=== PATIENT | male | born 1950 | race Caucasian/White ===

== ENCOUNTER 2017-07-04 12:07 | Day surgery (SDC) | payer MEDICARE ==
[~2017-07-04] VITALS: Ht 182.9 cm; Wt 84.5 kg
[~2017-07-04 12:07] MED LIST: ALBU6.7H INH; BUDE90AE IH; CARV6.252 PO; ESOM20CA28 PO; MONT10TA23 PO; SIMV20TA4 PO; TERA2CAP4 PO; fentaNYL-PF 50 mCg/mL 2 mL Inj IVPUSH PRN
[2017-07-04] MEDS ORDERED: FLUT1AER IH (15:30)
[2017-07-04 15:31] VITALS: BP 148/105; PULSE 70; RESP 16; O2SAT 98
[2017-07-04] MEDS ORDERED: 0.9% Sodium Chloride 1,000 ML IV ONE (16:39)
[2017-07-04 17:05] VITALS: BP 152/98; PULSE 61; RESP 10; O2SAT 96
[2017-07-04 17:14] VITALS: BP 144/102; PULSE 63; RESP 14; O2SAT 97
--- NOTE | 2017-07-04 17:22 | ENDO ---
[address] [address] ENDOSCOPY PROCEDURE PATIENT: VANESSA GRAVES : 1950 MR#: [id number] ADMIT: 07/04/2017 JOB ID: [id number] DATE: 07/04/2017 PREPROCEDURE DIAGNOSIS: Gastroesophageal reflux disease. POSTPROCEDURE DIAGNOSIS: Gastroesophageal reflux disease. PROCEDURE PERFORMED: Upper endoscopy with biopsy and Eugene pH probe placement. SURGEON: Hannah Stevens MD HISTORY OF PRESENT ILLNESS: This is a 67-year-old man with a history of severe gastroesophageal reflux disease refractory to medical management. He desired consideration of anti-reflux surgery and therefore upper endoscopy was performed in addition to other workup. FINDINGS: Schatzki's ring, 2 cm hiatal hernia, large fundic gland polyps with the stomach. DESCRIPTION OF PROCEDURE: The patient was brought to the endoscopy suite and placed in the left decubitus position. A bite block was placed. The upper endoscope was advanced through the esophagus, stomach, and the third portion of the duodenum. The duodenum appeared normal. The stomach was normal, with the exception of multiple large fundic gland polyps. These appeared larger than normal, two of them were approximately 1 cm in size, and therefore they were removed with a hot snare and sent for pathology. Retroflexed examination of the gastroesophageal junction revealed a 2 cm hiatal hernia and a Hill grade 2 flap valve. A Schatzki's ring was noted at the squamocolumnar junction, which was at 36 cm. The diaphragm was at 38 cm. The endoscope was withdrawn. Careful attention was paid to the esophagus, which had normal mucosa. He had a history of a possible traction diverticulum several years ago on an upper gastrointestinal, but no diverticulum was seen. The Eugene probe was then advanced to 30 cm, 6 cm above the gastroesophageal junction. It was positioned appropriately. Repeat endoscopy revealed it to be in the appropriate position. The endoscope was withdrawn. ESTIMATED BLOOD LOSS: 2 mL. SPECIMENS: Gastric fundic gland polyps for final pathology. COMPLICATIONS: None.
[2017-07-04 17:25] VITALS: BP 154/101; PULSE 61; RESP 14; O2SAT 97
--- NOTE | 2017-07-10 15:53 | PATH ---
SURGICAL PATHOLOGY Attending Physician:Hannah Stevens MD CASE STATUS: Signed Out PATIENT NAME: VANESSA GRAVES PID: [id number] : 1950 DATE COLLECTED:07/04/2017 00:00 SPECIMEN: Stomach, Polyp, Biopsy CLINICAL HISTORY: 1). GASTRIC POLYPS X2 FINAL DIAGNOSIS: Gastric Polyps x2, Biopsy: - Fragments of fundic gland polyp with focal erosion and atypia, indefinite for dysplasia. See comment. - No evidence of intestinal metaplasia. - Pending Helicobacter pylori immunohistochemical stain. (The result will be reported in an addendum) - No evidence of high grade dysplasia and malignancy. ICD10: K21.9 NOTE: Histologic sections demonstrate fragments of fundic gland polyps with areas of surface erosion and associated atypia, indefinite for dysplasia. These polyps may be a phenotypic marker for a polyposis syndrome (attenuated FAP or Mut-1 homolog).There is no evidence of high grade dysplasia and malignancy. This is not considered a precursor lesion for malignancy. Additional deeper levels are examined. The preliminary findings were discussed with Dr. Stevens, on 07/10/2017 at 11:00 am. As part of routine supervisor quality control, this case was also reviewed by Dr. Mercado who agrees with the above interpretation. GROSS DESCRIPTION: Received in formalin, labeled with the patient' s name and "gastric polyps", are five fragments of baron, soft tissue ranging from 0.3 x 0.2 x 0.1 cm to 0.6 x 0.5 x 0.5 cm. The fragments are totally submitted in one cassette. [id number]) MICRO DESCRIPTION: See dignosis. ICD-9 CODES: CPT CODES: 1: 41349, 93018 PROCEDURE/ADDENDA: Immunohistochemistry SPI Interpretation {Not Entered} Results-Comments This addendum is issued to report the results of Helicobacter pylori immunohistochemical stain. RESULT: NEGATIVE FOR HELICOBACTER PYLORI MICROORGANISMS BY IMMUNOHISTOCHEMISTRY. The control stains show appropriate reactivity. This test was developed and its performance characteristics determined by [employer]. It has not been cleared or approved by the U. S. Food and Drug Administration. The FDA has determined that such clearance or approval is not necessary. This test is used for clinical purposes. It should not be regarded as investigational or for research. Electronically Signed Out Charlie Bañuelos MD Electronically Signed Out Charlie Bañuelos MD Located Within [facility] Pathology [facility] [address], [place] [address] Technical component performed at [facility], [address], [place], [address]
[2017-07-25] MEDS ORDERED: TERA2CAP4 PO (14:00)
[2017-07-25] MEDS ORDERED: SILD20TA14 PO (14:00)
== END 2017-07-04 23:59 | disposition home or self-care (01) ==
LOC: END 12:07
PROVIDERS: ATTEND Surgery
DX: K21.0 Gastro-esophageal reflux disease with esophagitis (principal); K22.2 Esophageal obstruction; K22.4 Dyskinesia of esophagus; K31.7 Polyp of stomach and duodenum; K44.9 Diaphragmatic hernia without obstruction or gangrene; Q39.6 Congenital diverticulum of esophagus; I10 Essential (primary) hypertension; E78.5 Hyperlipidemia, unspecified; J45.909 Unspecified asthma, uncomplicated; Z80.0 Family history of malignant neoplasm of digestive organs; Z86.010 Personal history of colon polyps
CPT/HCPCS: 43251; 88305; 91010; 91037; 99153; G0500; J2250; J3010; J7030

== ENCOUNTER → 2017-07-06 | Day surgery (SDC) | payer MEDICARE ==
[~2017-07-06] MED LIST changes: +FLUT1AER IH; +OXYC5SOL11 PO; +SILD20TA14 PO; -fentaNYL-PF 50 mCg/mL 2 mL Inj IVPUSH PRN
== END | disposition home or self-care (01) ==
LOC: END 07-04 00:19
PROVIDERS: ATTEND Surgery
DX: K21.0 Gastro-esophageal reflux disease with esophagitis (principal); K22.4 Dyskinesia of esophagus

== ENCOUNTER 2017-08-02 05:33 | Day surgery (SDC) | payer MEDICARE ==
--- NOTE | 2017-08-01 16:49 | PCM.HPANE ---
Patient Data Surgeon Admitting Provider: Attending Provider:Hannah Stevens MD Primary Care Physician:Eduardo Hicks MD Other Provider:Mele Rogers Anesthesia Reason for Visit Gerd, Umbilical Hernia Ht/WT & BMI Height (Feet): 6 Height (Inches): 0 Weight (Kilograms): 86.63 Body Mass Index 25.00 Allergies Coded Allergies: lisinopril (Verified Adverse Reaction, Unknown, 07/03/17) Past Anesthesia History Anesthesia History: Denies:: Abnormal Airway, Anesthesia Reactions, Difficult Intubation, Fam Anesthesia Reaction, Fam Malignant Hypertherm, Malignant Hyperthermia Diabetes History Hx Diabetes?: No MRSA MRSA: No Medications Hypertension Medication: Yes Home Meds Incl Beta Sincere: No Reported Medications Sildenafil Citrate (Sildenafil)20 Mg Tablet1-5 Tab PO Q3D PRN erectile dysfunction 07/25/17 Terazosin 2 Mg Capsule4 Mg PO HS Ref 0 07/25/17 Fluticasone/Vilanterol (Breo Ellipta 100-25 Mcg INH)1 Each Aer.pow.ba1 Each IH DAILY 07/04/17 Terazosin 2 Mg Capsule2 Mg PO QAM Ref 0 07/03/17 Simvastatin 20 Mg [id number] Mg PO HS Ref 0 07/03/17 Esomeprazole Magnesium (Nexium)20 Mg Capsule.dr20 Mg PO DAILY Ref 0 07/03/17 Albuterol Sulfate (Proventil HFA Inhaler)6.7 Gm Hfa.aer.ad1 Puff INH Q4 PRN For Dyspepsia or Heartburn #1 INHALER Ref 0 02/27/14 Montelukast 10 Mg [id number] Mg PO HS 30 Days Ref 0 02/27/14 History History of ENT Problems?: Yes HEENT History: Positive for:: Dysphagia (current admission problem) Denies:: Abnormal Airway Cataracts Difficult Intubation Glaucoma Hearing Problem Sinus Problem TMJ Denture Type: None Teeth Condition: Within Normal Limits Hx of Heart Problems?: Yes Cardiovascular History: Positive for:: Hypertension Denies:: AICD Abdominal Aortic Aneurism Atrial Fibrillation Cardiac Surgery Chest Pain Congestive Heart Failure Edema Heart Murmur Irregular Heartbeat Pacemaker Thrombophlebitis Valvular Heart Disease Other History/Comments CHEM STRESS DONE IN aZ-RECORDS NOT ON FILE,REPORTED NL BY PT Hx of Respiratory Problem?: Yes Respiratory History: Positive for:: Asthma Use of Inhalers / NEBS Denies:: COPD Chest Surgery Cough Dyspnea Emphysema Hemoptysis Oxygen Administration Pneumonia Tuberculosis Use of C-PAP Machine Other Resp 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 (pt had punch bx left calf at dermatology last week) Denies:: Pressure Ulcers Hx Musculoskeletal Problems?: No Musculoskeletal History: Denies:: Back Injury Fibromyalgia Joint Replacement Musculoskeletal Trauma (remote hx of knee arthroscopy) Osteoarthritis Rheumatoid Arthritis Systemic Lupus Hx of Psycho/Social Problems?: No Psycho Social History: Denies:: Anxiety Bipolar Disorder Hx Depression Hx Surgeries?: Yes (L KNEE, T&A) Hx Any Other Health Problems?: Yes Other History: Denies:: Cancer Hospitalization Thyroid Disease History Blood Transfusions: Positive for:: Accept Blood Products? Denies:: Blood Transfusions Hx Diabetes: No Hx Alcohol Use: Yes (3-4 / WEEK)Hx Substance Use: No Smoking Status: Never Smoker Have You Smoked inLast 12 mo: No Stop/Bang Treated for Sleep Apnea?: No Do You Have a CPAP Machine?: No S-Snoring: Do You Snore Loudly: No T-Tired: feel tired, fatigued: No O-Obsered: Observed not breath: No P-Blood Pressure: treated: Yes B- Body Mass Index > 35 kg/m2: No A- Age over 50: Yes N- Neck Large Circumference: No G- Gender Male: Yes PRICNESS Total Score: 3 PRINCESS Risk Assessment: Low Risk, <3 Yes Risk Assessment Category Category 1A: Patient has history of documented sleep apnea, and HAS NOT received any narcotic, sedative or anesthesia administration during this stay. Category 1B: Patient has history of documented sleep apnea, and HAS received any narcotic , sedative or anesthesia administration during this stay Category 2: Patient has SUSPECTED Obstructive Sleep Apnea, and HAS received any narcotic , sedative or anesthesia administration during this stay. Category 3: Patient has SUSPECTED Obstructive Sleep Apnea and HAS NOT received narcotic, sedative or anesthesia administration during this stay. Category 4: Outpatient in Procedural Areas with known sleep apnea or who screen positive for High Risk via the STOP/BANG questionnaire. Exam Exam General Appearance: Alert, Oriented X3, Cooperative HEENT/AIRWAY: MP 2 Lungs: Clear to Auscultation Heart: Exam Unremarkable Plan Impression Patient chart reviewed, patient interviewed and anesthestic plan with risks, benefits, and alternatives discussed, and informed consent obtained. ASA Physical Status: ASA2 Mod Systemic Disease Anesthetic Plan: GA, Epidural (if open procedure) Bene/Risks/Altern/Consents: Yes HP Complete Prior to Induction: Yes Teresa Alejandro MD Aug 01, 2017 16:49
[~2017-08-02] VITALS: Ht 167.6 cm; Wt 85.4 kg
[2017-08-02] VITALS (10 sets, daily range): BP systolic 109–155; BP diastolic 50–97; PULSE 55–89; RESP 15–19; O2SAT 95–100
[~2017-08-02 05:33] MED LIST changes: -BUDE90AE IH; -CARV6.252 PO; +Dexamethasone 4 mg/mL Inj IVPUSH PRN; +EPHEDrine Sulfate 50 mg/mL Inj IVPUSH PRN; +HYDROmorphone 1 mg/mL Inj IVPUSH PRN; +Lactated Ringer's 1,000 ML IV SCH; +Lactated Ringer's 500 ML IV PRN; +MetoCLOpramide 5 mg/mL 2 mL Inj IVPUSH PRN; -OXYC5SOL11 PO; +Ondansetron 2 mg/mL 2 mL Inj IVPUSH PRN; +Phenylephrine 10,000 mCg/mL Inj IVPUSH PRN; +fentaNYL-PF 50 mCg/mL 2 mL Inj IVPUSH PRN
[2017-08-02] MEDS ORDERED: EPHEDrine/NS 5 mg/mL 5 mL Syringe ONE (05:34)
[2017-08-02] MEDS ORDERED: Rocuronium 10 mg/mL 5 mL Inj ONE (05:34)
[2017-08-02] MEDS ORDERED: Neostigmine 1 mg/mL 10 mL Inj ONE (05:34)
[2017-08-02] MEDS ORDERED: fentaNYL-PF 50 mCg/mL 2 mL Inj ONE (05:34)
[2017-08-02] MEDS ORDERED: Phenylephrine/NS 100 mCg/mL 10 mL Syringe IVPUSH ONE (05:34)
[2017-08-02] MEDS ORDERED: Glycopyrrolate 0.2 MG/ML 1mL Inj ONE (05:34)
[2017-08-02] MEDS ORDERED: Propofol 10,000 mCg/mL 20 mL Inj ONE (05:34)
[2017-08-02] MEDS: Lactated Ringer's 1,000 ML IV SCH ×3 (05:44→14:16)
[2017-08-02] MEDS ORDERED: CeFAZolin Inj 2 GM in IV Premix 1 EACH IV ONE (06:00)
[2017-08-02] MEDS ORDERED: Lactated Ringer's 500 ML IV PRN (07:23)
[2017-08-02] MEDS ORDERED: Lactated Ringer's 1,000 ML IV SCH (07:23)
[2017-08-02] MEDS ORDERED: Ondansetron 2 mg/mL 2 mL Inj IVPUSH PRN ×2 (07:25→11:55)
[2017-08-02] MEDS ORDERED: Dexamethasone 4 mg/mL Inj IVPUSH PRN (07:25)
[2017-08-02] MEDS ORDERED: EPHEDrine Sulfate 50 mg/mL Inj IVPUSH PRN (07:25)
[2017-08-02] MEDS ORDERED: HYDROmorphone 1 mg/mL Inj IVPUSH PRN (07:25)
[2017-08-02] MEDS ORDERED: fentaNYL-PF 50 mCg/mL 2 mL Inj IVPUSH PRN (07:25)
[2017-08-02] MEDS ORDERED: Phenylephrine 10,000 mCg/mL Inj IVPUSH PRN (07:25)
[2017-08-02] MEDS ORDERED: MetoCLOpramide 5 mg/mL 2 mL Inj IVPUSH PRN ×2 (07:25→11:55)
[2017-08-02 08:25] LABS: Mean Corpuscular Hemoglobin 29.9 pg (27.0-35.0); Mean Corpuscular Volume 88.4 fL (81-100)
[2017-08-02] MEDS ORDERED: Bupivacaine-MPF 0.5% 30 mL Inj INFILTRATE ONE (08:42)
[2017-08-02 08:50] LABS: BASOPHILS % (AUTO) 0.5 % (0-3); EOSINOPHILS % (AUTO) 2.1 % (0-5); MONOCYTES % (AUTO) 9.1 % (4-12); NEUTROPHILS % (AUTO) 74.1 % (40-74)
[2017-08-02 09:10] LABS: APPEARANCE,URINE HAZY (CLEAR,HAZY); COLOR,URINE YELLOW (YELLOW); OCCULT BLOOD,URINE LARGE (NEGATIVE); UROBILINOGEN,URINE NORMAL (NORMAL)
[2017-08-02] MEDS ORDERED: Lactated Ringer's 1,000 ML IV ONE ×3 (10:13→11:27)
--- NOTE | 2017-08-02 11:51 | PCM.SURGOP ---
Surgical Operative Report Date of Service: Aug 02, 2017 Pre Operative Diagnosis 1. Hiatal hernia 2. Pathologic gastroesophageal reflux 3. Umbilical hernia Post Operative Diagnosis 1. Hiatal hernia 2. Pathologic gastroesophageal reflux 3. Umbilical hernia Procedure: 1. Laparoscopic hiatal hernia repair with Toupet fundoplication 2. Laparoscopic primary umbilical hernia repair Surgeon and Critical Care Clinical Nurse Specialist: Surgeon: Hannah Stevens MD Assistants: Narendra Schmitz PA-C; Mary Ellen Valle MS 3 Indication for Procedure This is a 67-year-old man who presented to my office with symptoms of acid brash , water brash, heartburn, hoarseness voice, constant need to clear his throat, and regurgitation, despite PPI use. He had also previously undergone workup by an bleacher [employer]wood [employer], and had been told his symptoms are due to reflux.. He underwent full workup and was found to have a small sliding hiatal hernia on upper GI and endoscopy, DeMeester score of 47 on pH testing, normal peristalsis on esophageal manometry, and a Schatzki's ring and fundic gland polyps within the stomach. He also had an umbilical hernia. He desired antireflux surgery, and at the same time, umbilical hernia repair. Findings: 1. Small sliding hiatal hernia with mild inflammation around the GE junction. 2. Small accessory hepatic arterial branch in the right janis, divided to complete the operation. 3. 1.5 cm defect umbilical hernia, closed primarily. Procedure Details The patient was brought to the operating room and placed in supine position. General endotracheal anesthesia was smoothly induced. A warming blanket and SCDs were placed. The patient was repositioned into low lithotomy with the left arm tucked. Antibiotics were infused. The operative field was prepped and draped in sterile fashion. A pause was performed to confirm the correct patient, procedure, and site. The abdomen was accessed using a Veress needle in the left upper quadrant after controlling the fascia and was insufflated. An 11 mm Optiview port was inserted and intraperitoneal insufflation began. A 5 mm port was then placed in the mid abdomen just to the left of midline. The 5 mm port was placed in the mid abdomen laterally on the left. A 5 mm flexible liver retractor was placed through a 5 mm port in the right lateral abdomen. A final 5mm trocar was placed in the right upper quadrant. A small hiatal hernia was seen. The stomach was identified and the phrenogastric ligament was taken down sharply. The short gastrics were then taken down using LigaSure device. Dissection proceeded at the hiatus starting on the left. The mediastinum was entered on the left. Both vagi were identified and preserved. The gastrohepatic ligament was then divided up to the right janis and the right sided dissection was completed with care taken to preserve the entire janis. Once the esophagus was dissected circumferentially, the hiatal hernia was reduced and a [place]ington drain was then placed around the esophagus at the gastroesophageal junction for retraction to facilitate a more proximal esophageal dissection. This proceeded proximally until there was 5 cm of intra- abdominal esophagus. 3 interrupted 2-0 silk stitches were placed in the posterior crura to reapproximate them without tension. Attention was turned to the to Toupet fundoplication. A Toupet was chosen due to data demonstrating that it is equivalent for postoperative reflux but improves postoperative dysphagia and gas bloat, and the risk of bougie placement is avoided. A marking stitch was placed on the posterior fundus, 3 cm distal to the gastroesophageal junction and 2 cm posterior to the greater curvature. This was brought around posteriorly to align the geometry of the fundoplication. The first stitch was placed in the fundus just proximal to the marking stitch, to the esophagus at and 11 o'clock position, and to the right janis at the 11 o'clock position. The second stitch was placed from the posterior aspect of the right fundoplication to the bilateral crura posteriorly. The [place] drain was removed. Two additional stitches were then placed from the right side of the fundoplication to an 11 o'clock position on the esophagus. Care was taken to avoid inclusion of the anterior vagus in the stitches. The marking stitch was removed. Attention was then turned to the left side of the wrap. An appropriate position on the fundus was chosen to create symmetrical geometry of the fundoplication. The first stitch on the left was placed from the wrap to the esophagus to the janis, again with care taken to avoid inclusion of the anterior vagus in the stitch. Two additional sutures were then placed from the wrap to the esophagus, each 1 cm distal to the previous one. A final coronal stitch was placed from the left posterior fundoplication to the posterior aspect of the left janis. Attention was turned to the umbilical hernia repair. There is some incarcerated fat within it which was reduced. Hemostasis was carefully confirmed. The defect appeared 1.5 cm in size. A primary repair was chosen. A small incision was made at the center of the location of the defect with an 11 blade scalpel. A Braxton-Melba device was used to place 3 interrupted 2-0 PDS stitches above and below the defect. Once all the stitches are placed, they were each tied to close the defect. Once the procedure was complete the ports were removed under direct vision and the abdomen was desufflated. 0.5% Marcaine with epinephrine was infused at all port sites. Skin was closed with 4-0 Monocryl. Sterile dressings were placed. All sponge, instrument, and needle counts were correct at the end of the procedure. The patient was awakened from general anesthesia and taken to the postoperative care unit in good condition. Complications There were no periprocedural complications identified. Surgical Specimen Removed: No Specimen sent to Pathology: No Anesthetic Plan: GA, Epidural (if open procedure) Grafts, Implants: None Output, Estimated Blood Loss: 5 (ml) Blood Administration during aaron: No Hannah Stevens MD Aug 02, 2017 11:51
[2017-08-02] MEDS ORDERED: ProchlorPERazine 5 mg/mL 2 mL Inj IVPUSH PRN (11:55)
[2017-08-02 12:28] LABS: Mean Corpuscular Hemoglobin 29.9 pg (27.0-35.0); Mean Corpuscular Volume 90.4 fL (81-100)
--- NOTE | 2017-08-02 12:48 | PCM.ANEP1 ---
Post Anesthesia PACU Phase 1 Assessment Vital Signs Vital Signs Date Time Temp Pulse Resp B/P Pulse Ox O2 Delivery O2 Flow Rate FiO2 08/02/17 12:01 58 16 120/61 100 Simple Mask 10 08/02/17 11:55 57 17 109/50 100 Simple Mask 10 08/02/17 11:50 55 15 120/66 100 Simple Mask 10 08/02/17 11:45 36.6 58 15 126/95 100 Simple Mask 10 08/02/17 05:58 35.9 69 16 138/97 96 Room Air Anesthetic Administered: GA Level of Alertness: Awake, talking MESSER's with Equal Strength: Yes Pain: No Nausea or Vomiting: No CV Function & Hydration Stable: Yes Airway Device: Oxygen Delivery: Room Air Lungs: Clear to Auscultation PACU Phase 2 Assessment Complications: No Follow up Care: No Patient Instructions Provided: Yes Teresa Alejandro MD Aug 02, 2017 12:48
[2017-08-02] MEDS ORDERED: Albuterol 2.5 mg/3 mL Inhalation Solution NEB PRN (13:14)
[2017-08-02] MEDS: Acetaminophen 32.5 mg/mL 20 mL Liquid PO SCH ×2 (13:51→18:09)
[2017-08-02] MEDS: Heparin 5,000 Unit/mL Inj SUBQ SCH ×2 (13:51→21:06)
[2017-08-02] MEDS: Dextrose 5% Lactated Ringer's 1,000 ML IV SCH (13:59)
--- NOTE | 2017-08-02 14:19 | NUR ---
Admit Patient arrived to room 1003 at 1300 via stretcher from PACU. Patient transferred to bed via slide board. Patient denies pain or nausea. Lap sites C/D/I. Patient oriented to room and call light. Pt's at bedside. Addendum: 08/02/17 at 1421 by KATHLEEN GUEVARA RN Correction - patient arrived at 1240
[2017-08-02] MEDS: oxyCODONE 1 mg/mL 5 mL Liquid PO PRN ×2 (16:16→21:07)
--- NOTE | 2017-08-02 17:48 | NUR ---
Steri-strip Steri-strip above umbilicus got soaked with small-moderate amount sanguinous blood and came loose. Area cleaned up and new steri-strip applied. Small amount of gauze placed below area in umbilicus with paper tape to soak up any additional blood.
[2017-08-02] MEDS: Fluticasone-Salmererol 250-50 Inhaler INHALATION SCH (20:30)
[2017-08-03] MEDS: Acetaminophen 32.5 mg/mL 20 mL Liquid PO SCH ×3 (00:37→13:44)
[2017-08-03] MEDS: oxyCODONE 1 mg/mL 5 mL Liquid PO PRN ×5 (00:38→18:42)
[2017-08-03] MEDS: Dextrose 5% Lactated Ringer's 1,000 ML IV SCH (00:38)
[2017-08-03 01:11] VITALS: BP 109/67; PULSE 73; O2SAT 95
--- NOTE | 2017-08-03 03:31 | NUR ---
Lap Site Dressing to lap site at umbilicus remained CDI this shift. Pt reports pain 5/10 and rec'd PRN oxycodone and routine tylenol per orders. Encouraged Pt to cough and deep breathe while supporting abdomen with pillow. Pt understood and completed. at bedside, call light in reach. Care continues
[2017-08-03 05:24] VITALS: BP 126/82; PULSE 67; RESP 18; O2SAT 96
[2017-08-03] MEDS: Heparin 5,000 Unit/mL Inj SUBQ SCH ×2 (05:29→13:23)
[2017-08-03 05:40] LABS: Mean Corpuscular Volume 90.9 fL (81-100)
--- NOTE | 2017-08-03 07:48 | PCM.PNSURG ---
Subjective Visit Information: Reason for Visit Gerd, Umbilical Hernia Surgery/Surgery Date Post-Op Day # Date of Admission: Hospital Day # Subjective: Stable overnight. No N/V. Tolerated CLD. Labs stable. Vitals normal. Objective Vital Sign- Last 8 Hours Date Time Temp Pulse Resp B/P Pulse Ox O2 Delivery O2 Flow Rate FiO2 08/03/17 05:24 36.8 67 18 126/82 96 Room Air 08/03/17 01:11 36.8 73 109/67 95 Room Air Intake and Output- Last 8 Hour 08/03/17 Cumulative From/Thru 07:00 07/25/17 12:44 - 08/03/17 06:26 Intake Total 1294 ml 4624 ml Output Total 350 ml 1355 ml Balance 944 ml 3269 ml Intake Oral 300 ml 1100 ml IV Total 994 ml 3524 ml Output Urine Total 350 ml 1350 ml Estimated Blood Loss 5 ml # Bowel Movements 0 0 General: Alert, Oriented X3, Cooperative, No Acute Distress Abdomen: Soft, Appropriately tender Result Diagram: 08/03/17 0445 08/03/17 0445 Assessment & Plan Impression POD1 lap hiatal hernia repair, umbilical hernia repair, doing well. Problems: Plan FLD Engraver [employer] visit Alexandra is out Ambulation Possible discharge late this am/early afternoon. Hannah Stevens MD Aug 03, 2017 07:48
[2017-08-03] MEDS ORDERED: OXYC5SOL11 PO (07:49)
--- NOTE | 2017-08-03 07:50 | PCM.DISURG ---
Surgical Discharge Instruction Date of Service Aug 03, 2017 Dates of Hospitalization Date of Hospital Admission Providers Admitting Physician: Primary Care Physician: Eduardo Hicks MD Attending Physician: Hannah Stevens MD Discharge Diagnosis Post Operative diagnosis 1. Hiatal hernia 2. Pathologic gastroesophageal reflux 3. Umbilical hernia Diet Discharge Diet: Other (Full liquid diet) Activity Discharge Activity-General: No lifting >10 pounds for 4-6 weeks Dressing and Incisional Care Dressing Care: Remove outer dressing after 24 hrs Hygiene: May shower Follow Up Plan Follow Up Plan Follow up with Dr. Stevens in 2 weeks. Call your provider for: Fever, Chills, Shortness of breath, Increasing abdominal pain, Nausea, Vomiting, Discharge @ incision, pus discharge Hannah Stevens MD Aug 03, 2017 07:50
[2017-08-03] MEDS: Fluticasone-Salmererol 250-50 Inhaler INHALATION SCH (08:30)
--- NOTE | 2017-08-03 08:47 | PCM.DC.SUR ---
Discharge Summary Date of Service: Date of Hospital Admission: 08/02/2017 Date of Operation(s): 08/02/2017 Date of Discharge: 08/03/2017 Diagnosis at Time of Discharge Primary diagnoses: 1. Hiatal hernia 2. Pathologic gastroesophageal reflux 3. Umbilical hernia Other chronic conditions: 1. Piriformis syndrome 2. Low HDL 3. Hypertension 4. GERD 5. ED 6. Asthma 7. Angioedema on lisinopril Problems: Operation 1. Laparoscopic hiatal hernia repair with Toupet fundoplication 2. Laparoscopic primary umbilical hernia repair Brief History and Physical: This is a 67-year-old man who presented with symptoms of acid brash, water brash , heartburn, hoarseness voice, constant need to clear his throat, and regurgitation, despite PPI use. He had also previously undergone workup by an cytotechnologist/histotechnologist, and had been told his symptoms are due to reflux.. He underwent full workup and was found to have a small sliding hiatal hernia on upper GI and endoscopy, DeMeester score of 47 on pH testing, normal peristalsis on esophageal manometry, and a Schatzki's ring and fundic gland polyps within the stomach. He also had an umbilical hernia. Consultants: None Hospital Course: The patient was admitted and underwent the above-mentioned operations without complication. He was stable for discharge the following morning. Pathology: None Disposition: The patient was discharged to home on his first postsurgical day. Follow-up Plan: He will follow-up in the office with Dr. Stevens in 2 weeks. Albuterol Sulfate (Proventil HFA Inhaler) 6.7 Gm Hfa.aer.ad 1 PUFF INH Q4 PRN PRN For Dyspepsia or Heartburn (Reported) Fluticasone/Vilanterol (Breo Ellipta 100-25 Mcg INH) 1 Each Aer.pow.ba 1 EACH IH DAILY (Reported) Montelukast (Montelukast) 10 Mg Tablet 10 MG PO HS (Reported) Sildenafil Citrate (Sildenafil) 20 Mg Tablet 1-5 TAB PO Q3D PRN PRN erectile dysfunction (Reported) Simvastatin (Simvastatin) 20 Mg Tablet 20 MG PO HS (Reported) Terazosin (Terazosin) 2 Mg Capsule 2 MG PO QAM (Reported) Terazosin (Terazosin) 2 Mg Capsule 4 MG PO HS (Reported) oxyCODONE (oxyCODONE) 5 Mg/5 Ml Solution 5-10 MG PO Q4H PRN PRN For Severe Pain copies to: Eduardo Hicks MD, Fred H PA-C Aug 03, 2017 08:47
--- NOTE | 2017-08-03 08:53 | NUR ---
DIET ED COMPLETED. Pureed/liquid diet ed completed. Please see RD: Diet Teaching Record under Care Activity for further information regarding diet ed
[2017-08-03 15:41] VITALS: BP 132/85; PULSE 65; RESP 18; O2SAT 95
--- NOTE | 2017-08-03 19:21 | NUR ---
Discharge/Delay Pt discharged to home at 1900; A&Ox3, MESSER, VSS, IV dc'd intact, Lap site x6 CDI with steris/bandaids and gauze/tape to umbilicus, Call to Dr. Stevens re: blisters and redness to general lower back - stating itchy - was recommended hydrocortisone topical cream prior to dc, Hard copy script provided to for filling prior to dc, CareNotes and instructions provided on dc dx, new medications and s/sx to seek medical attention for. Pt medicated prior to dc. Delay in discharge d/t pt having difficulty voiding post garcia removal. Pt understood the need to void by 1000 this AM, was only able to go a couple of cc's, stated burning with initial urination post removal and some blood tinge noted to urine. Enc PO intake and pt continued to attempt to void with only ~25cc at a time. Pt without bladder discomfort. Bladder scan at 1200 was 363cc. By afternoon pt continued to have some retention but remained comfortable. Ariella urine noted. Pt attempting to relax muscles and found that sitting down to urinate was more effective and easier for urine flow. Pt stayed until after dinner to ensure ability to urinate without issue upon return home. Pt and comfortable with going home. ~175cc at a time. Instructed on s/sx to seek medical attention for d/t retention. No questions concerns left unanswered at ma. All personal belongings in hand at ma. Pt wheeled off unit to vehicle.
== END 2017-08-03 19:05 | disposition home or self-care (01) ==
LOC: SAS 05:33 → OSC 13:07 → SAS 08-03 19:05
PROVIDERS: ATTEND Surgery
DX: K44.9 Diaphragmatic hernia without obstruction or gangrene (principal); K42.0 Umbilical hernia with obstruction, without gangrene; K21.0 Gastro-esophageal reflux disease with esophagitis; I10 Essential (primary) hypertension; R91.8 Other nonspecific abnormal finding of lung field; D73.9 Disease of spleen, unspecified; R13.10 Dysphagia, unspecified; J45.909 Unspecified asthma, uncomplicated
CPT/HCPCS: 36415; 43280; 49652; 80048; 81000; 85027; 96372; C1713; J0690; J1644; J1885; J2370; J2704; J2710; J3010; J7120